=== PATIENT | female | born 1965 | race American Indian/Alaskan Native ===

== ENCOUNTER 2021-10-10 22:45 | Observation (INO) | payer BC ==
[2021-10-10] MEDS ORDERED: ASPIRIN 325 MG TAB PO ONE (23:14)
--- NOTE | 2021-10-10 23:49 | XRay Report ---
CHEST 2 VIEWS INDICATION / CLINICAL INFORMATION: CHEST PAIN. COMPARISON: None available. FINDINGS: SUPPORT DEVICES: None. HEART / MEDIASTINUM: No significant abnormality. LUNGS / PLEURA: No significant pulmonary or pleural abnormality. No pneumothorax. ADDITIONAL FINDINGS: No significant additional findings. IMPRESSION: 1. No acute findings. Signer Name: Keyshawn Maria MD Signed: 10/10/2021 11:45 PM Workstation Name: [id number]
[2021-10-11 01:09] LABS: Basophils % (Auto) 0.4 % (0.0-1.8); Eosinophils # (Auto) 0.1 K/mm3 (0.0-0.4); Eosinophils % (Auto) 1.4 % (0.0-4.3); Hematocrit 43.2 % (30.3-42.9); Hemoglobin 14.4 gm/dl (10.1-14.3); Lymphocytes # (Auto) 2.3 K/mm3 (1.2-5.4); Lymphocytes % (Auto) 36.8 % (13.4-35.0); Mean Corpuscular HGB Conc 33 % (30-34); Mean Corpuscular Volume 92 fl (79-97); Monocytes # (Auto) 0.6 K/mm3 (0.0-0.8); Monocytes % (Auto) 9.7 % (0.0-7.3); Platelet Count 271 K/mm3 (140-440); Red Blood Count 4.71 M/mm3 (3.65-5.03); Red Cell Distribution Width 13.8 % (13.2-15.2)
[2021-10-11 01:30] LABS: Alanine Aminotransferase 11 units/L (7-56); Albumin 4.3 g/dL (3.9-5); BUN/Creatinine Ratio 17; Blood Urea Nitrogen 10 mg/dL (7-17); Calcium 9.7 mg/dL (8.4-10.2); Hemolysis Index 4
[2021-10-11] MEDS ORDERED: NITROGLYCERIN 2% OINT 1 GM TP ONE (03:14)
[2021-10-11] MEDS ORDERED: ONDANSETRON 4 MG/2 ML INJ IV PRN (03:14)
[2021-10-11] MEDS ORDERED: fentaNYL 100 MCG/2 ML INJ IV PRN (03:14)
--- NOTE | 2021-10-11 03:21 | Emergency Department Report ---
HPI - General Chief Complaint: Chest Pain Time Seen by Provider: 10/11/21 03:05 - HPI HPI: Room 18 The patient is a 56-year-old female present with a chief complaint of chest pain. The patient states 2 days ago she developed a frontal headache. The pa yana states this evening at 22: 00 she developed substernal chest tightness that has been intermittent and associated with tingling in the fingers of both hands left greater than right. Patient denies shortness of breath, nausea/vomiting or diaphoresis with this chest pain. The patient states her last episode of the chest tightness occurred 15 minutes before this interview but she currently does not have chest pain. The patient admits she is under a lot of stress currently. Patient denies history of cough. Patient states she is never had a stress test or cardiac catheterization ED Past Medical Hx - Past Medical History Previous Medical History?: No - Surgical History Additional Surgical History: Cyst removed from neck - Family History Family history: no significant - Social History Smoking Status: Never Smoker Substance Use Type: None (Denies illicit drug use) ED Review of Systems ROS: Stated complaint: CHEST PAIN/HEADACHE/TINGLING IN HANDS Other details as noted in HPI Constitutional: denies: diaphoresis Eyes: denies: eye pain ENT: denies: throat pain Respiratory: denies: shortness of breath Cardiovascular: chest pain Endocrine: no symptoms reported Gastrointestinal: denies: nausea, vomiting Genitourinary: denies: dysuria Musculoskeletal: denies: back pain Neurological: headache, paresthesias Physical Exam - Physical Exam Vital Signs: Vital Signs 10/10/21 10/11/21 10/11/21 23:06 02:58 03:00 Temperature 98.6 F Pulse Rate 72 Respiratory 18 Rate Blood Pressure 150/63 133/59 O2 Sat by Pulse 99 48 L 98 Oximetry Physical Exam: GENERAL: The patient is well-developed well-nourished female lying on stretcher not appearing to be in acute distress. [] HEENT: Normocephalic. Atraumatic. Extraocular motions are intact. Patient has moist mucous membranes. NECK: Supple. Trachea midline CHEST/LUNGS: Clear to auscultation. There is no respiratory distress noted. HEART/CARDIOVASCULAR: Regular. There is no tachycardia. There is no gallop rub or murmur. ABDOMEN: Abdomen is soft, nontender. Patient has normal bowel sounds. There is no abdominal distention. SKIN: There is no rash. There is no edema. There is no diaphoresis. NEURO: The patient is awake, alert, and oriented. The patient is cooperative. The patient has no focal neurologic deficits. The patient has normal speech. GCS 15 MUSCULOSKELETAL: There is no evidence of acute injury. ED Course Vital Signs 10/10/21 10/11/21 10/11/21 23:06 02:58 03:00 Temperature 98.6 F Pulse Rate 72 Respiratory 18 Rate Blood Pressure 150/63 133/59 O2 Sat by Pulse 99 48 L 98 Oximetry ED Medical Decision Making - Lab Data Result diagrams: 10/11/21 00:31 10/11/21 00:31 Laboratory Tests 10/11/21 10/11/21 00:31 00:31 WBC 6.4 RBC 4.71 Hgb 14.4 H Hct 43.2 H MCV 92 MCH 31 MCHC 33 RDW 13.8 Plt Count 271 Lymph % (Auto) 36.8 H [place] % (Auto) 9.7 H Eos % (Auto) 1.4 Baso % (Auto) 0.4 Lymph # (Auto) 2.3 [place] # (Auto) 0.6 Eos # (Auto) 0.1 Baso # (Auto) 0.0 Seg Neutrophils % 51.7 Seg Neutrophils # 3.3 Sodium 142 Potassium 4.1 Chloride 102.7 Carbon Dioxide 28 Anion Gap 15 BUN 10 Creatinine 0.6 Estimated GFR > 60 BUN/Creatinine Ratio 17 Glucose 105 H Calcium 9.7 Total Bilirubin 0.30 AST 14 ALT 11 Alkaline Phosphatase 98 Troponin T < 0.010 Total Protein 6.9 Albumin 4.3 Albumin/Globulin Ratio 1.7 - EKG Data -: EKG Interpreted by Me EKG shows normal: sinus rhythm Rate: normal - EKG Data When compared to previous EKG there are: previous EKG unavailable Interpretation: nonspecific ST-T wave ntahalia (Flattened T waves lead V2) - Radiology Data Radiology results: report reviewed (Chest x-ray), image reviewed (Chest x-ray) interpreted by me: Chest x-ray-no definite focal infiltrates, no pneumothorax [facility] [address] [place] [address] XRay Report Signed Patient: ADALID WISEMAN MR#: [id number] : 1965 Acct:[id number] Age/Sex: 56 / F ADM Date: 10/10/21 Loc: ED Attending Dr: Ordering Physician: ELVER DIGGS MD Date of Service: 10/10/21 Procedure(s): XR chest routine 2V Accession Number(s): [id number] cc: ED MD CATERINA Fluoro Time In Minutes: CHEST 2 VIEWS INDICATION / CLINICAL INFORMATION: CHEST PAIN. COMPARISON: None available. FINDINGS: SUPPORT DEVICES: None. HEART / MEDIASTINUM: No significant abnormality. LUNGS / PLEURA: No significant pulmonary or pleural abnormality. No pneumothorax. ADDITIONAL FINDINGS: No significant additional findings. IMPRESSION: 1. No acute findings. Signer Name: Keyshawn Maria MD Signed: 10/10/2021 11:45 PM Workstation Name: [id number] Transcribed By: TL Dictated By: Keyshawn Maria MD Electronically Authenticated By: Keyshawn Maria MD Signed Date/Time: 10/10/212344 DD/ 44 TD/TT: - Differential Diagnosis ACS, pericarditis, GERD Critical care attestation.: If time is entered above; I have spent that time in minutes in the direct care of this critically ill patient, excluding procedure time. ED Disposition Clinical Impression: Chest pain Disposition: ADMITTED INPATIENT Is pt being admited?: Yes Does the pt Need Aspirin: No Condition: Stable Instructions: Nonspecific Chest Pain, Adult Time of Disposition: 03:25 (Care transferred to hospitalist (Dr. James)) Heart Score - HEART Score History: Highly suspicious EKG: Non-specific Age: 45-65 Risk factors: No known risk factors Troponin: < normal limit HEART Score: 4 - EKG Read Time Time EKG Completed: 22:59 EKG Read Time: 23:06
[2021-10-11] MEDS ORDERED: traMADol 50 MG TAB PO PRN (04:56)
[2021-10-11] MEDS ORDERED: MORPHINE 4 MG/1 ML INJ IV PRN (04:56)
[2021-10-11] MEDS ORDERED: NITROGLYCERIN 0.4 MG TAB SUBL SL PRN (04:56)
[2021-10-11] MEDS ORDERED: ACETAMINOPHEN 325 MG TAB PO PRN (04:56)
[2021-10-11] MEDS ORDERED: SODIUM CHLORIDE 0.9% 1000 ML 1,000 ML IV SCH (05:00)
--- NOTE | 2021-10-11 05:03 | History and Physical Report ---
History of Present Illness Date of examination: 10/11/21 Date of admission: 10/11/21 Chief complaint: Chest pain History of present illness: 56-year-old female with no significant past medical history was brought to the emergency room because of of chest pain. The patient developed a frontal headache 2 days ago. The patient states this evening at 22: 00 she developed substernal chest tightness that has been intermittent and associated with tingling in the fingers of both hands left greater than right. Patient denies shortness of breath, nausea/vomiting or diaphoresis with this chest pain. The patient states her last episode of the chest tightness occurred 15 minutes before this interview but she currently does not have chest pain. The patient admits she is under a lot of stress currently. Patient denies history of cough. Patient states she is never had a stress test or cardiac catheterization In the emergency room initial cardiac enzyme is negative. Troponin is 0.010. So going to admit the patient to telemetry. We will do a Lexiscan Past History Past Surgical History: Other (Cyst removed from neck) Social history: no significant social history Family history: no significant family history Medications and Allergies Allergies Allergy/AdvReac Type Severity Reaction Status Date / Time No Known Allergies Allergy Verified 10/10/21 23:13 Active Meds: Active Medications Fentanyl (Fentanyl 100 Mcg/2 Ml Inj) 50 mcg IV ONCE PRN PRN Reason: Pain , Severe (7-10) Ondansetron HCl (Ondansetron 4 Mg/2 Ml Inj) 8 mg IV ONCE PRN PRN Reason: Nausea Review of Systems All systems: negative Constitutional: other (Headache, tingling of the hands) Cardiovascular: chest pain Exam - Constitutional Vitals: Temp Pulse Resp BP Pulse Ox 98.6 F 64 18 141/66 99 10/10/21 23:06 10/11/21 03:31 10/11/21 03:31 10/11/21 03:38 10/11/21 03:31 General appearance: Present: no acute distress, well-nourished - EENT Eyes: Present: PERRL ENT: hearing intact, clear oral mucosa - Neck Neck: Present: supple, normal ROM - Respiratory Respiratory effort: normal Respiratory: bilateral: diminished - Cardiovascular Heart Sounds: Present: S1 & S2. Absent: rub, click - Extremities Extremities: pulses symmetrical, No edema Peripheral Pulses: within normal limits - Abdominal General gastrointestinal: Present: soft, non-tender, non-distended, normal bowel sounds Female genitourinary: Present: normal - Integumentary Integumentary: Present: clear, warm, dry - Musculoskeletal Musculoskeletal: gait normal, strength equal bilaterally - Psychiatric Psychiatric: appropriate mood/affect, intact judgment & insight - Neurologic Neurologic: CNII-XII intact, moves all extremities HEART Score - HEART Score EKG: Non-specific Age: 45-65 Risk factors: No known risk factors Troponin: Troponin T < 0.010 ng/mL (0.00-0.029) 10/11/21 02:57 Troponin: < normal limit Results - Labs CBC & Chem 7: 10/11/21 00:31 10/11/21 00:31 Labs: Laboratory Last Values WBC 6.4 K/mm3 (4.5-11.0) 10/11/21 00:31 RBC 4.71 M/mm3 (3.65-5.03) 10/11/21 00:31 Hgb 14.4 gm/dl (10.1-14.3) H 10/11/21 00:31 Hct 43.2 % (30.3-42.9) H 10/11/21 00:31 MCV 92 fl (79-97) 10/11/21 00:31 MCH 31 pg (28-32) 10/11/21 00:31 MCHC 33 % (30-34) 10/11/21 00:31 RDW 13.8 % (13.2-15.2) 10/11/21 00:31 Plt Count 271 K/mm3 (140-440) 10/11/21 00:31 Lymph % (Auto) 36.8 % (13.4-35.0) H 10/11/21 00:31 Gregory % (Auto) 9.7 % (0.0-7.3) H 10/11/21 00:31 Eos % (Auto) 1.4 % (0.0-4.3) 10/11/21 00:31 Baso % (Auto) 0.4 % (0.0-1.8) 10/11/21 00:31 Lymph # (Auto) 2.3 K/mm3 (1.2-5.4) 10/11/21 00:31 Gregory # (Auto) 0.6 K/mm3 (0.0-0.8) 10/11/21 00:31 Eos # (Auto) 0.1 K/mm3 (0.0-0.4) 10/11/21 00:31 Baso # (Auto) 0.0 K/mm3 (0.0-0.1) 10/11/21 00:31 Seg Neutrophils % 51.7 % (40.0-70.0) 10/11/21 00:31 Seg Neutrophils # 3.3 K/mm3 (1.8-7.7) 10/11/21 00:31 Sodium 142 mmol/L (137-145) 10/11/21 00:31 Potassium 4.1 mmol/L (3.6-5.0) 10/11/21 00:31 Chloride 102.7 mmol/L (98-107) 10/11/21 00:31 Carbon Dioxide 28 mmol/L (22-30) 10/11/21 00:31 Anion Gap 15 mmol/L 10/11/21 00:31 BUN 10 mg/dL (7-17) 10/11/21 00:31 Creatinine 0.6 mg/dL (0.6-1.2) 10/11/21 00:31 Estimated GFR > 60 ml/min 10/11/21 00:31 BUN/Creatinine Ratio 17 % 10/11/21 00:31 Glucose 105 mg/dL (65-100) H 10/11/21 00:31 Calcium 9.7 mg/dL (8.4-10.2) 10/11/21 00:31 Total Bilirubin 0.30 mg/dL (0.1-1.2) 10/11/21 00:31 AST 14 units/L (5-40) 10/11/21 00:31 ALT 11 units/L (7-56) 10/11/21 00:31 Alkaline Phosphatase 98 units/L (35-129) 10/11/21 00:31 Troponin T < 0.010 ng/mL (0.00-0.029) 10/11/21 02:57 Total Protein 6.9 g/dL (6.3-8.2) 10/11/21 00:31 Albumin 4.3 g/dL (3.9-5) 10/11/21 00:31 Albumin/Globulin Ratio 1.7 % 06/06/22 00:31 - Imaging and Cardiology Chest x-ray: report reviewed Assessment and Plan VTE prophylaxis?: Chemical Plan of care discussed with patient/family: Yes - Patient Problems (1) ACS (acute coronary syndrome) Current Visit: Yes Status: Acute Plan to address problem: Admit the patient to the medical telemetry. Aspirin 325 mg p.o. daily. Lipitor 40 mg p.o. daily night. Nitroglycerin as needed. We do the serial cardiac enzymes. We also do a Lexiscan. Consult cardiology if needed (2) Hand tingling Current Visit: Yes Status: Acute Plan to address problem: Will do a CT scan of the head without IV contrast. Aspirin 325 mg p.o. daily. Lipitor 40 mg p.o. daily. Consult neurology if needed (3) DVT prophylaxis Current Visit: Yes Status: Acute Plan to address problem: Heparin 5000 units subcu every 12 hours for DVT prophylaxis. Protonix 40 mg p.o. daily for GI prophylaxis. Patient is a full code
--- NOTE | 2021-10-11 06:21 | Cat Scan Report ---
CT HEAD WITHOUT CONTRAST INDICATION / CLINICAL INFORMATION: Hand tingling. TECHNIQUE: All CT scans at this location are performed using CT dose reduction for ALARA by means of automated e xposure control. COMPARISON: None available. FINDINGS: HEMORRHAGE: None. EXTRA-AXIAL SPACES: Normal in size and morphology for the patient's age. VENTRICULAR SYSTEM: Normal in size and morphology for the patient's age. CEREBRAL PARENCHYMA: No significant abnormality. No acute territorial infarct. MIDLINE SHIFT OR HERNIATION: None. CEREBELLUM / BRAINSTEM: No significant abnormality. ORBITS: Normal as visualized. SOFT TISSUES of HEAD: No significant abnormality. CALVARIUM: No significant abnormality. PARANASAL SINUSES / MASTOID AIR CELLS: Normal as visualized. ADDITIONAL FINDINGS: None. IMPRESSION: 1. No acute intracranial abnormality. Signer Name: Keyshawn Maria MD Signed: 10/11/2021 6:17 AM Workstation Name: [id number]
[2021-10-11 06:39] LABS: Basophils % (Auto) 0.4 % (0.0-1.8); Eosinophils # (Auto) 0.1 K/mm3 (0.0-0.4); Eosinophils % (Auto) 1.1 % (0.0-4.3); Hemoglobin 14.3 gm/dl (10.1-14.3); Lymphocytes # (Auto) 2.3 K/mm3 (1.2-5.4); Lymphocytes % (Auto) 42.7 % (13.4-35.0); Mean Corpuscular HGB Conc 34 % (30-34); Mean Corpuscular Volume 92 fl (79-97); Monocytes # (Auto) 0.4 K/mm3 (0.0-0.8); Monocytes % (Auto) 8.1 % (0.0-7.3); Platelet Count 257 K/mm3 (140-440); Red Blood Count 4.59 M/mm3 (3.65-5.03); Red Cell Distribution Width 13.7 % (13.2-15.2)
[2021-10-11 06:54] LABS: Blood Urea Nitrogen 7 mg/dL (7-17); Calcium 9.5 mg/dL (8.4-10.2); Hemolysis Index 2
[2021-10-11 06:57] LABS: BUN/Creatinine Ratio 14
[2021-10-11] MEDS ORDERED: REGADENOSON 0.4 MG/5 ML INJ IV ONE (07:01)
[2021-10-11] MEDS ORDERED: PANTOPRAZOLE 40 MG TAB PO SCH (10:00)
[2021-10-11 10:46] VITALS: BP 116/56
--- NOTE | 2021-10-11 12:24 | Nuclear Medicine Report ---
APPROVED REPORT Exam: Nuclear Stress Test Indication: Chest pain [facility] Ht: 5 ft 3 in Wt: 142 lbs BSA: 1.67 m2 HR: 64 bpmBP: 126/49 mmHgBMI: 25.15 Rhythm: Sinus Rhythm Stress Test Details Stress Test: Exercise stress testing was performed using a William protocol. HR Resting HR: 64 bpm Max HR Achieved: 143 bpm Max Heart Rate (APMHR): 163 bpm Target HR (85% APMHR): 138 bpm % of APMHR: 87 Recovery HR: 79 bpm HR response to stress: Normal HR response to stress BP Resting BP: 116/49 mmHg Max BP: 156/77 mmHg Recovery BP: 118/54 mmHg BP response to stress: Normal blood pressure response to stress. ECG Resting ECG: Sinus Rhythm Stress ECG: Sinus Tachycardia ST Change: None Arrhythmia: None Recovery ECG: Sinus Rhythm Recovery ST Change: None Recovery Arrhythmia: Occasional VPC's Clinical Reason for Termination: Fatigue Stress Symptoms: Fatigue Exercise duration: 9 min 1 sec Exercise capacity: 10.3 METs Overall Exercise Capacity for Age: Good Stress ECG Conclusion No chest pain with exercise to 10 METS. Myocardial perfusion images are pending. NM EXAM: Myocardial Perfusion REST/STRESS Resting Data Rest SPECT myocardial perfusion imaging was performed in supine position 45 minutes following the intravenous injection of 10 mCi of Tc-99m Myoview. Time of rest injection: 0730 Exercise Stress At peak stress, the patient was injected intravenously with 28mCi of Tc-99m Myoview. Time of stress injection: 1020 Gated Stress SPECT was performed 15 minutes after stress injection. The images were gated to evaluate regional wall motion and calculate left ventricular ejection fraction. Study Quality Study: excellent Lung Uptake: Normal Study Data TID = 1.08. Perfusion Wall Motion The rest and stress images show normal left ventricular wall motion. Ejection fraction 66%. Nuclear Conclusion ECG Findings: negative for ischemia Clinical Findings: negative for ischemia Nuclear Findings: negative for ischemia Exercise Capacity: normal Left Ventricular Function: normal Risk Study: low Normal rest and stress myocardial perfusion study, normal left ventricular systolic function, ejection fraction 66%. Normal study. Conclusion No chest pain with exercise to 10 METS. Myocardial perfusion images are pending.
--- NOTE | 2021-10-11 15:01 | Discharge Summary ---
Providers - Providers Date of Admission: 10/11/21 06:18 Attending physician: KAYDEN SANCHEZ MD 10/11/21 Consult to Cardiac Rehabilitation [CONS] Routine Reason For Exam: Phase I Primary care physician: LLUVIA TYLER Hospitalization Reason for admission: CHEST PAIN Condition: Stable Hospital course: 56-year-old female with no significant past medical history was brought to the emergency room because of of chest pain. The patient developed a frontal headache 2 days ago. The patient states this evening at 22: 00 she developed substernal chest tightness that has been intermittent and associated with tingling in the fingers of both hands left greater than right. Patient denies shortness of breath, nausea/vomiting or diaphoresis with this chest pain. The patient states her last episode of the chest tightness occurred 15 minutes before this interview but she currently does not have chest pain. The patient admits she is under a lot of stress currently. Patient denies history of cough. Patient states she is never had a stress test or cardiac catheterization In the emergency room initial cardiac enzyme is negative. Troponin is 0.010. So going to admit the patient to telemetry. We will do a Lexiscan (1) Atypical Chest pain secondary to costochondritis Patient underwent Head CT that was negative, also the patient, stress test done and negative. Patient advised to follow-up with his primary care physician. (2) Autonomic Dysfunction. (3) Headache Disposition: 01 HOME / SELF CARE / HOMELESS Final Discharge Diagnosis (Prints w/discharge instructions): Atypical Chest pain LIKELY Costochondritis Time spent for discharge: 35 MINS Core Measure Documentation - Palliative Care Palliative Care/ Comfort Measures: Not Applicable - Core Measures Any of the following diagnoses?: none Exam - Physical Exam Narrative exam: General appearance: Present: no acute distress, well-nourished - EENT Eyes: Present: PERRL ENT: hearing intact, clear oral mucosa - Neck Neck: Present: supple, normal ROM - Respiratory Respiratory effort: normal Respiratory: bilateral: diminished - Cardiovascular Heart Sounds: Present: S1 & S2. Absent: rub, click - Extremities Extremities: pulses symmetrical, No edema Peripheral Pulses: within normal limits - Abdominal General gastrointestinal: Present: soft, non-tender, non-distended, normal bowel sounds Female genitourinary: Present: normal - Integumentary Integumentary: Present: clear, warm, dry - Musculoskeletal Musculoskeletal: gait normal, strength equal bilaterally - Psychiatric Psychiatric: appropriate mood/affect, intact judgment & insight - Neurologic Neurologic: CNII-XII intact, moves all extremities - Constitutional Vitals: Temp Pulse Resp BP Pulse Ox 98.6 F 82 17 116/56 100 10/10/21 23:06 10/11/21 05:01 10/11/21 05:01 10/11/21 10:26 10/11/21 05:01 Plan Activity: advance as tolerated, fall precautions Diet: low fat Special Instructions: record daily weights, record daily BP diary Follow up with: LLUVIA TYLER MD [Primary Care Provider] - 7 Days Prescriptions: AtorvaSTATin [Lipitor] 40 mg PO QHS #30 tablet Aspirin [Aspirin BABY CHEW TAB] 81 mg PO QDAY #60 tab.chew
[2021-10-12] MEDS ORDERED: ASPIRIN EC 325 MG TAB PO SCH (10:00)
--- NOTE | 2021-10-12 12:27 | Electrocardiograph Report ---
[facility] Test Date: 2021-10-11 Test Time: 14:09:57 Pat Name: ADALID WISEMAN Department: Room: A476 1 Gender: F [employer]: MARK : 1965 Requested By: RAMAN ISSA Order Number: [id number] Reading MD: Shila Dumont Measurements Intervals [place] Rate: 66 P: 53 MA: 154 QRS: 40 QRSD: 76 T: 48 QT: 391 QTc: 410 Interpretive Statements Sinus rhythm Compared to ECG 10/10/2021 22:59:49 No significant changes Electronically Signed On 10-12-2021 12:27:35 EDT by Shila Dumont
--- NOTE | 2021-10-14 11:43 | Electrocardiograph Report ---
[facility] Test Date: 2021-10-10 Test Time: 22:59:49 Pat Name: ADALID WISEMAN Department: Room: A476 1 Gender: F Grommet Man: Viola : 1965 Requested By: BETTY RUDD Order Number: [id number] Reading MD: Ryan Amezcua Measurements Intervals [place] Rate: 73 P: 56 W[place]: 142 QRS: 46 QRSD: 77 T: 49 QT: 386 QTc: 426 Interpretive Statements Sinus rhythm No previous ECG available for comparison Electronically Signed On 10-14-2021 11:43:29 EDT by Ryan Amezcua
== END 2021-10-11 17:25 | disposition home or self-care (01) ==
LOC: ED 22:45 → INTOOBSV 10-11 06:18 → 4A 10-11 06:18
PROVIDERS: ADMIT Hospitalist; ATTEND Internal Medicine
DX: R07.89 Other chest pain (principal); M94.0 Chondrocostal junction syndrome [Tietze]; R20.2 Paresthesia of skin; I24.9 Acute ischemic heart disease, unspecified; R51.9 Headache, unspecified; Z79.899 Other long term (current) drug therapy; Z98.890 Other specified postprocedural states
CPT/HCPCS: 36415; 70450; 71046; 78452; 80053; 84484; 85025; 93005; 93017; 99285; A9502; G0378; 80048